=== PATIENT | male | born 1955 | race Caucasian/White ===

== ENCOUNTER 2023-09-16 10:10 | Day surgery (SDC) | payer MEDICARE ==
[2023-09-15 11:58] LABS: EOSINOPHILS # (AUTO) 0.1 X10'3 (0-0.9); MEAN PLATELET VOLUME 8.9 FL (7.4-10.4); RED CELL DISTRIBUTION WIDTH 15.8 % (11.5-14.5)
[2023-09-15 12:00] LABS: BASOPHILS % (AUTO) 0.2 % (0-1); EOSINOPHILS % (AUTO) 1.1 % (0-6); HEMATOCRIT 46.9 % (42.0-52.0); HEMOGLOBIN 15.5 g/dl (14.0-17.9); LYMPHOCYTES # (AUTO) 1.7 X10'3 (1.1-4.8); LYMPHOCYTES % (AUTO) 22.9 % (21-51); MEAN CORPUSCULAR HEMOGLOBIN 29.4 PG (27.0-31.0); MEAN CORPUSCULAR HGB CONC 33.1 g/dL (33.0-36.5); MEAN CORPUSCULAR VOLUME 88.7 FL (78-98); MONOCYTES # (AUTO) 0.6 X10'3 (0-0.9); NEUTROPHILS # (AUTO) 5.1 X10'3 (1.8-7.7); NEUTROPHILS % (AUTO) 67.8 % (42-75); PLATELET COUNT 147 X10'3 (140-440); RED BLOOD COUNT 5.28 X10'6 (4.70-6.10); WHITE BLOOD COUNT 7.5 X10'3 (4.5-11.0)
[2023-09-15 12:07] LABS: INR 1.1 INR; PROTHROMBIN TIME 11.6 SECONDS (9.0-12.0)
[2023-09-15 12:09] LABS: ALBUMIN 3.4 G/DL (3.4-5.0); ANION GAP 11 (8-16); BLOOD UREA NITROGEN 19 MG/DL (7-18); BUN/CREATININE RATIO 23.5 (10.0-20.0); CHLORIDE 109 MMOL/L (99-107); CREATININE 0.81 MG/DL (0.60-1.10); GLUCOSE 146 MG/DL (70-104); SODIUM 139 MMOL/L (135-145); eGFR > 90 ML/MIN
[~2023-09-16] VITALS: Ht 180.3 cm; Wt 110.5 kg
[2023-09-16] VITALS (10 sets, daily range): BP systolic 116–135; BP diastolic 62–78; PULSE 78–93; RESP 12–23; TEMP 97.8; O2SAT 91–99
[2023-09-16] MEDS ORDERED: atropine 0.1mg/ml 10ml syringe IV ONE (10:30)
[2023-09-16] MEDS ORDERED: diphenhydrAMINE 25mg capsule PO ONE (10:30)
[2023-09-16] MEDS ORDERED: amiodarone 150mg/dext, iso-os 100 ML IV ONE (10:30)
[2023-09-16] MEDS ORDERED: LORazepam 0.5 MG tablet PO ONE (10:30)
[2023-09-16] MEDS ORDERED: normal saline 1000ml 1,000 ML IV SCH (10:30)
[2023-09-16] MEDS ORDERED: ATOR40TA72 PO (10:48)
[2023-09-16] MEDS ORDERED: INSU100I31 SUBCUT (10:48)
[2023-09-16] MEDS ORDERED: ALBUTEROL (10:48)
[2023-09-16] MEDS ORDERED: TOPI25TA49 PO (10:48)
[2023-09-16] MEDS ORDERED: DILT-88 PO (10:48)
[2023-09-16] MEDS ORDERED: RIVA20TA PO (10:48)
[2023-09-16] MEDS ORDERED: BUDE10.7 (11:07)
[2023-09-16] MEDS ORDERED: METO-395 PO (11:07)
[2023-09-16] MEDS ORDERED: OMEP20CA15 PO (11:09)
[2023-09-16] MEDS ORDERED: DULA1.5P SUBCUT (11:10)
[2023-09-16] MEDS ORDERED: INSU100C10 SQ (11:10)
[2023-09-16] MEDS ORDERED: FLEC100T35 PO (11:13)
[2023-09-16] MEDS ORDERED: FAMO20TA8 PO (11:13)
[2023-09-16] MEDS ORDERED: BETA1TAB20 PO (11:15)
[2023-09-16] MEDS ORDERED: CHOL500050 PO (11:15)
[2023-09-16] MEDS: morphine 10mg/ml inj. IV ONE (12:32)
[2023-09-16] MEDS: MIDAZolam 1mg/ml 10ml vial IV ONE (12:33)
== END 2023-09-16 13:35 | disposition home or self-care (01) ==
LOC: SSTAY O 10:10
PROVIDERS: ATTEND Internal Medicine Cardiovascular Disease
DX: I48.0 Paroxysmal atrial fibrillation (principal); I49.1 Atrial premature depolarization; I10 Essential (primary) hypertension; I25.119 Atherosclerotic heart disease of native coronary artery with unspecified angina pectoris; E11.9 Type 2 diabetes mellitus without complications; E78.5 Hyperlipidemia, unspecified; E66.9 Obesity, unspecified; G47.30 Sleep apnea, unspecified; Z79.01 Long term (current) use of anticoagulants; Z79.899 Other long term (current) drug therapy; Z90.49 Acquired absence of other specified parts of digestive tract; Z98.49 Cataract extraction status, unspecified eye; Z98.890 Other specified postprocedural states; Z68.34 Body mass index [BMI] 34.0-34.9, adult; Z88.1 Allergy status to other antibiotic agents; Z88.5 Allergy status to narcotic agent; Z91.040 Latex allergy status; Z82.49 Family history of ischemic heart disease and other diseases of the circulatory system; Z82.3 Family history of stroke
CPT/HCPCS: 36415; 80048; 85025; 85610; 92960; 93005; A4620; J2250; J2270; J7030; Z7610; J2274

== ENCOUNTER 2023-12-14 07:14 | Day surgery (SDC) | payer MEDICARE ==
[2023-12-13 12:51] LABS: BASOPHILS % (AUTO) 0.3 % (0-1); EOSINOPHILS # (AUTO) 0.1 X10'3 (0-0.9); EOSINOPHILS % (AUTO) 0.7 % (0-6); HEMATOCRIT 49.3 % (42.0-52.0); HEMOGLOBIN 15.8 g/dl (14.0-17.9); LYMPHOCYTES # (AUTO) 1.7 X10'3 (1.1-4.8); MEAN CORPUSCULAR HGB CONC 32.1 g/dL (33.0-36.5); MEAN CORPUSCULAR VOLUME 90.3 FL (78-98); MEAN PLATELET VOLUME 8.8 FL (7.4-10.4); MONOCYTES # (AUTO) 0.6 X10'3 (0-0.9); MONOCYTES % (AUTO) 7.2 % (2-12); NEUTROPHILS # (AUTO) 5.9 X10'3 (1.8-7.7); NEUTROPHILS % (AUTO) 70.8 % (42-75); PLATELET COUNT 175 X10'3 (140-440); RED BLOOD COUNT 5.46 X10'6 (4.70-6.10); RED CELL DISTRIBUTION WIDTH 16.6 % (11.5-14.5); WHITE BLOOD COUNT 8.3 X10'3 (4.5-11.0)
[2023-12-13 12:55] LABS: ALBUMIN 3.4 G/DL (3.4-5.0); ANION GAP 9 (8-16); BLOOD UREA NITROGEN 18 MG/DL (7-18); CALCIUM 8.9 MG/DL (8.5-10.1); CHLORIDE 111 MMOL/L (99-107); CREATININE 1.06 MG/DL (0.60-1.10); GLUCOSE 133 MG/DL (70-104); POTASSIUM 4.7 MMOL/L (3.5-5.1); SODIUM 143 MMOL/L (135-145); TOTAL CARBON DIOXIDE 23.3 MMOL/L (24-32); eGFR 69 ML/MIN
[2023-12-13 12:57] LABS: INR 1.6 INR
[~2023-12-14] VITALS: Ht 177.8 cm; Wt 116.1 kg
[2023-12-14] VITALS (11 sets, daily range): BP systolic 112–145; BP diastolic 67–86; PULSE 73–81; RESP 13–20; TEMP 98.2; O2SAT 96–100
[~2023-12-14 07:14] MED LIST: ALBUTEROL; ATOR40TA72 PO; BETA1TAB20 PO; BUDE10.7; CHOL500050 PO; DILT-88 PO; DULA1.5P SUBCUT; FAMO20TA8 PO; FLEC100T35 PO; INSU100C10 SQ; INSU100I31 SUBCUT; METO-395 PO; OMEP20CA15 PO; RIVA20TA PO; TOPI25TA49 PO
[2023-12-14] MEDS ORDERED: amiodarone 150mg/dext, iso-os 100 ML IV ONE (07:35)
[2023-12-14] MEDS ORDERED: atropine 0.1mg/ml 10ml syringe IV ONE (07:35)
[2023-12-14] MEDS ORDERED: LORazepam 0.5 MG tablet PO ONE (07:35)
[2023-12-14] MEDS ORDERED: diphenhydrAMINE 25mg capsule PO ONE (07:35)
[2023-12-14] MEDS ORDERED: AMI200T PO (07:43)
[2023-12-14] MEDS: normal saline 1000ml 1,000 ML IV SCH (08:00)
[2023-12-14] MEDS: MIDAZolam 1mg/ml 10ml vial IV ONE (11:32)
[2023-12-14] MEDS: morphine 10mg/ml inj. IV ONE (11:32)
== END 2023-12-14 12:30 | disposition home or self-care (01) ==
LOC: SSTAY O 07:14
PROVIDERS: ATTEND Internal Medicine Cardiovascular Disease
DX: I48.0 Paroxysmal atrial fibrillation (principal); I49.3 Ventricular premature depolarization; I44.4 Left anterior fascicular block; I25.10 Atherosclerotic heart disease of native coronary artery without angina pectoris; E11.9 Type 2 diabetes mellitus without complications; I10 Essential (primary) hypertension; E78.5 Hyperlipidemia, unspecified; E66.9 Obesity, unspecified; G47.30 Sleep apnea, unspecified; Z79.01 Long term (current) use of anticoagulants; Z79.899 Other long term (current) drug therapy; Z90.49 Acquired absence of other specified parts of digestive tract; Z98.49 Cataract extraction status, unspecified eye; Z98.890 Other specified postprocedural states; Z68.36 Body mass index [BMI] 36.0-36.9, adult; Z88.1 Allergy status to other antibiotic agents; Z88.2 Allergy status to sulfonamides; Z88.5 Allergy status to narcotic agent; Z88.8 Allergy status to other drugs, medicaments and biological substances; Z91.040 Latex allergy status; Z82.3 Family history of stroke; Z82.49 Family history of ischemic heart disease and other diseases of the circulatory system
CPT/HCPCS: 36415; 80048; 82948; 85025; 85610; 92960; 93005; J2250; J2270; J7030; Z7610; J2274